=== PATIENT | female | born 1990 | race Caucasian/White ===

== ENCOUNTER 2016-08-31 14:38 | Emergency (ER) | payer OTHER ==
--- NOTE | 2016-08-31 15:15 | ER PHYSICIAN DOCUMENTATION ---
Physician Documentation [facility] Name:Pinky Casanova Age:25 yrs Sex:Female :1990 Arrival Date:08/31/2016 Time:14:38 Bed3 Private MD:No PCP, Identified ED YanethArsen Disposition: 08/31/16 15:05 Discharged to Home/Self Care. Impression: Bladder Infection (UTI). - Condition is Good. - Discharge Instructions: BLADDER INFECTION, Female (Adult). - Prescriptions for Pyridium 200 mg Oral tablet - take 1 tablet by ORAL route 3 times per day for 2 days; 15 tablet. Bactrim DS 160- 800 mg Oral Tablet - take 1 tablet by ORAL route every 12 hours for 7 days; 14 tablet. - Medical Reconciliation form form. - Follow up: Private Physician; When: 10 - 14 days; Reason: Recheck today's complaints, Continuance of care. - Problem is new. - Symptoms are unchanged. HPI: 08/31 14:45 This 25 yrs old Female presents to ER via Private Vehicle with complaints of cd Pain With Urination. 14:45 The patient presents with urinary symptoms, dysuria, frequency, hesitancy, urgency. cd Onset: The symptoms/episode began/occurred acutely, this morning. Associated signs and symptoms: Pertinent negatives: fever, vaginal bleeding, vaginal discharge, vomiting, or back pain. Historical: - Allergies: Guargan; - Home Meds: 1. None - PSHx: bilateral knee surgery; - Tetanus: < 10 years. - Ebola Screening: : Patient negative for fever greater than or equal to 101.5 degrees Fahrenheit, and additional compatible Ebola Virus Disease symptoms. Patient denies exposure to infectious person. Patient denies travel to an Ebola-affected area in the 21 days before illness onset. . - Immunization history: Flu Vaccine < 1 year. - Social history: Smoking status: Patient states was never smoker of tobacco. ROS: 14:50 Positive for urinary symptoms, urinary frequency, burning with urination, Negative cd for pelvic pain, flank pain. 14:50 Constitutional: Negative for chills, fever, poor PO intake. 14:50 Abdomen/GI: Negative for abdominal pain, nausea, vomiting. Exam: 14:50 Constitutional: The patient appears alert, awake, anxious. cd 14:50 Abdomen/GI: Palpation: abdomen is soft and non-tender. 14:50 Back: CVA tenderness, is absent. 14:50 : Pelvic Exam: the exam is deferred, Bladder: tenderness. Vital Signs: 14:45 BP 141 / 84; Pulse 113; Resp 16; Temp 98.4(TE); Pulse Ox 96% on R/A; Weight 86.18 kg; lp Height 5 ft. 8 in. (172.72 cm); Pain 6/10; 14:45 Body Mass Index 28.89 (86.18 kg, 172.72 cm) lp MDM: 14:43 Patient medically screened. cd 15:00 Data reviewed: vital signs, nurses notes, old medical records, lab test result(s), cd urinalysis, and as a result, I will discharge patient, administer antibiotics Bactrim DS and Pyridium. Counseling: I had a detailed discussion with the patient and/or guardian regarding: the historical points, exam findings, and any diagnostic results supporting the discharge/admit diagnosis, lab results, the need for outpatient follow up, for a recheck, with the patient's primary care provider, to return to the emergency department if symptoms worsen or persist or if there are any questions or concerns that arise at home. Dispensed Medications: No medications were administered Point of Care Testing: Urine Dip: 15:13 pH: 6.0; ; Specific [place]: 1.030; Ketones: Trace; Glucose: Negative; Protein: lp Positive (+++); Leukocytes: Positive; Nitrite: Positive (++) ; Blood: Large (+++); Bilirubin: Negative ; Urobilinogen: Normal Signatures: Haven Nicholson RN RN Arsen Spencer MD MD cd
--- NOTE | 2016-08-31 15:15 | ER NURSING DOCUMENTATION ---
Nurse's Notes [facility] Name:Pinky Casanova Age:25 yrs Sex:Female :1990 Arrival Date:08/31/2016 Time:14:38 Bed3 Private MD:No PCP, Identified Diagnosis:Bladder Infection (UTI) Presentation: 08/31 14:45 Presenting complaint: Patient states: burning with urination and frequency. Transition lp of care: Home. Notified ED Physician of Dr. Spencer notified. 14:45 Acuity: ANNABELLE 3 lp 14:45 Method Of Arrival: Private Vehicle lp Triage Assessment: 14:46 General: Appears in no apparent distress, Behavior is appropriate for age. Pain: lp Complains of pain in suprapubic area. EENT: No deficits noted. Neuro: No deficits noted. Cardiovascular: No deficits noted. Respiratory: No deficits noted. GI: No deficits noted. : No deficits noted. : Reports burning with urination urgency urinary frequency. Derm: No deficits noted. Musculoskeletal: No deficits noted. Historical: - Allergies: Guargan; - Home Meds: 1. None - PSHx: bilateral knee surgery; - Tetanus: < 10 years. - Ebola Screening: : Patient negative for fever greater than or equal to 101.5 degrees Fahrenheit, and additional compatible Ebola Virus Disease symptoms. Patient denies exposure to infectious person. Patient denies travel to an Ebola-affected area in the 21 days before illness onset. . - Immunization history: Flu Vaccine < 1 year. - Social history: Smoking status: Patient states was never smoker of tobacco. Screenin:47 Infectious Disease Risk None. Abuse screen: Denies threats or abuse. Denies injuries lp from another. Nutritional screening: No deficits noted. Assessment: 14:47 See Triage Assessment done by same RN. lp Vital Signs: 14:45 BP 141 / 84; Pulse 113; Resp 16; Temp 98.4(TE); Pulse Ox 96% on R/A; Weight 86.18 kg; lp Height 5 ft. 8 in. (172.72 cm); Pain 6/10; 14:45 Body Mass Index 28.89 (86.18 kg, 172.72 cm) lp ED Course: 14:39 Patient arrived in ED. ds 14:39 No PCP, Identified is Private Physician. ds 14:43 Arsen Spencer MD is Attending Physician. cd 14:45 Haven Nicholson, RN is Primary Nurse. lp 14:45 Triage completed. lp 14:[address] Spencer notified. lp 14:47 Valuables Remains with patient Patient has correct armband on for positive lp identification. Placed in gown. Bed in low position. Call light in reach. Side rails up X 1. Administered Medications: No medications were administered Point of Care Testing: Urine Dip: 15:13 pH: 6.0; ; Specific [place]: 1.030; Ketones: Trace; Glucose: Negative; Protein: lp Positive (+++); Leukocytes: Positive; Nitrite: Positive (++) ; Blood: Large (+++); Bilirubin: Negative ; Urobilinogen: Normal Outcome: 15:05 Discharge ordered by . cd 15:14 Discharged to home ambulatory. lp 15:14 Condition: good 15:14 Instructed on discharge instructions, follow up and referral plans. medication usage. 15:14 Patient left the ED. lp 09/01 13:53 Discharge F/U Call: Unable to reach: left voicemail: sj 09/02 10:29 Discharge F/U Call: Unable to reach: non-working number st Signatures: Kathryn Mireles RN RN st Haven Nicholson, SHUKRI RN lp Srot, Maria Teresa, Reg Reg Arsen Spencer MD MD cd Janzen, [facility]
== END 2016-08-31 15:15 | disposition home or self-care (01) ==
LOC: ER 14:38
DX: N39.0 Urinary tract infection, site not specified (principal)
CPT/HCPCS: 99282